=== PATIENT | female | born 1970 | race Caucasian/White ===

== ENCOUNTER 2018-11-03 17:53 | Emergency (ER) | payer MEDICAID ==
[~2018-11-03] VITALS: Ht 152.4 cm; Wt 40.8 kg
[2018-11-03] MEDS ORDERED: HYDR-3686 PO (20:05)
[2018-11-03] MEDS ORDERED: PERM60CR4 TOP (20:05)
[2018-11-03] MEDS ORDERED: CEPH-572 PO (20:06)
[2018-11-03 20:13] VITALS: BP 116/82
== END 2018-11-03 20:16 | disposition home or self-care (01) ==
LOC: ER 17:54
DX: L30.9 Dermatitis, unspecified (principal); L01.00 Impetigo, unspecified; F17.200 Nicotine dependence, unspecified, uncomplicated; Z60.2 Problems related to living alone; Z79.899 Other long term (current) drug therapy
CPT/HCPCS: 99283

== ENCOUNTER 2019-02-11 08:10 | Emergency (ER) | payer MEDICAID ==
[~2019-02-11] VITALS: Ht 152.4 cm; Wt 41.5 kg
[~2019-02-11 08:10] MED LIST: PERM60CR4 TOP
[2019-02-11] MEDS ORDERED: TRIA15CR61 TOP (08:34)
[2019-02-11] MEDS ORDERED: METH4TAB81 PO (08:34)
[2019-02-11] MEDS ORDERED: triamcinolone acetonide 40mg/ml inj IM ONE (08:35)
[2019-02-11 08:59] VITALS: BP 124/72
== END 2019-02-11 09:01 | disposition home or self-care (01) ==
LOC: ER 08:10
DX: L23.7 Allergic contact dermatitis due to plants, except food (principal); F10.99 Alcohol use, unspecified with unspecified alcohol-induced disorder; Z60.2 Problems related to living alone; Y90.9 Presence of alcohol in blood, level not specified
CPT/HCPCS: 96372; 99283; J3301

== ENCOUNTER 2019-02-18 12:09 | Emergency (ER) | payer MEDICAID ==
[~2019-02-18] VITALS: Ht 154.9 cm; Wt 40.0 kg
[~2019-02-18 12:09] MED LIST changes: +METH4TAB81 PO; +TRIA15CR61 TOP
[2019-02-18] MEDS ORDERED: ketorolac tromethamine 15mg/ml inj. IM ONE (13:05)
[2019-02-18] MEDS ORDERED: IBUP-1986 PO (13:21)
[2019-02-18] MEDS ORDERED: TRAM50TA2 PO (13:21)
[2019-02-18 13:30] VITALS: BP 121/80
== END 2019-02-18 13:35 | disposition home or self-care (01) ==
LOC: ER 12:09
DX: S80.212A Abrasion, left knee, initial encounter (principal); Z60.2 Problems related to living alone; Z79.899 Other long term (current) drug therapy; W18.39XA Other fall on same level, initial encounter; Y93.89 Activity, other specified; Y92.89 Other specified places as the place of occurrence of the external cause; Y99.8 Other external cause status
CPT/HCPCS: 73560; 96372; 99284; J1885

== ENCOUNTER 2019-07-06 08:08 | Emergency (ER) | payer MEDICAID ==
[~2019-07-06] VITALS: Ht 152.4 cm; Wt 41.0 kg
[~2019-07-06 08:08] MED LIST changes: +IBUP-1986 PO; -TRIA15CR61 TOP
[2019-07-06 08:12] VITALS: BP 136/85
[2019-07-06] MEDS ORDERED: triamcinolone acetonide 40mg/ml inj IM ONE (08:20)
[2019-07-06] MEDS ORDERED: TRIA15CR61 TOP (08:21)
== END 2019-07-06 09:25 | disposition home or self-care (01) ==
LOC: ER 08:09
DX: L23.9 Allergic contact dermatitis, unspecified cause (principal); Z79.899 Other long term (current) drug therapy
CPT/HCPCS: 96372; 99283; J3301

== ENCOUNTER 2019-07-19 09:55 | Emergency (ER) | payer MEDICAID ==
[~2019-07-19] VITALS: Ht 152.4 cm; Wt 38.0 kg
[~2019-07-19 09:55] MED LIST changes: +TRIA15CR61 TOP
[2019-07-19 09:56] VITALS: BP 157/86
[2019-07-19] MEDS ORDERED: PRED20TA PO (11:24)
== END 2019-07-19 11:33 | disposition home or self-care (01) ==
LOC: ER 09:56
DX: L23.7 Allergic contact dermatitis due to plants, except food (principal); Z79.899 Other long term (current) drug therapy
CPT/HCPCS: 99283

== ENCOUNTER 2019-07-27 09:24 | Emergency (ER) | payer MEDICAID ==
[~2019-07-27] VITALS: Ht 152.4 cm; Wt 40.7 kg
[~2019-07-27 09:24] MED LIST changes: +PRED20TA PO
[2019-07-27 09:35] VITALS: BP 140/85
[2019-07-27] MEDS ORDERED: PRED10TA PO (11:21)
== END 2019-07-27 11:34 | disposition home or self-care (01) ==
LOC: ER 09:24
DX: L30.8 Other specified dermatitis (principal); Z79.899 Other long term (current) drug therapy
CPT/HCPCS: 99283

== ENCOUNTER → 2021-01-22 | Emergency (ER) | payer MEDICAID ==
[~2021-01-22] VITALS: Ht 152.4 cm; Wt 38.6 kg
[~2021-01-22] MED LIST changes: +PRED10TA PO; -PRED20TA PO; -TRIA15CR61 TOP
[2021-01-22 19:19] VITALS: BP 128/84
== END | disposition left against medical advice (07) ==
LOC: ER 18:43
DX: S61.211A Laceration without foreign body of left index finger without damage to nail, initial encounter (principal); Z53.21 Procedure and treatment not carried out due to patient leaving prior to being seen by health care provider; W45.8XXA Other foreign body or object entering through skin, initial encounter; Y93.9 Activity, unspecified; Y92.89 Other specified places as the place of occurrence of the external cause; Y99.9 Unspecified external cause status

== ENCOUNTER 2021-07-28 17:40 | Emergency (ER) | payer MEDICAID | END 2021-07-28 19:55 | disposition left against medical advice (07) | LOC: ER 17:40 | DX: Z00.8 Encounter for other general examination (principal); Z53.21 Procedure and treatment not carried out due to patient leaving prior to being seen by health care provider ==

== ENCOUNTER 2021-12-06 18:04 | Emergency (ER) | payer MEDICAID ==
[~2021-12-06] VITALS: Ht 152.4 cm; Wt 44.5 kg
[2021-12-06 18:09] VITALS: BP 124/79
[2021-12-06] MEDS ORDERED: dexamethasone sod phosphate 10mg/ml inj IM STA (18:43)
[2021-12-06] MEDS ORDERED: HYDR28CR14 TOP (18:45)
[2021-12-06] MEDS ORDERED: PRED10TA23 PO (18:45)
== END 2021-12-06 18:59 | disposition home or self-care (01) ==
LOC: ER 18:05
DX: L23.7 Allergic contact dermatitis due to plants, except food (principal); Z79.899 Other long term (current) drug therapy
CPT/HCPCS: 96372; 99283; J1100

== ENCOUNTER 2022-05-13 17:56 | Emergency (ER) | payer MEDICAID ==
[~2022-05-13] VITALS: Ht 152.4 cm; Wt 41.8 kg
[~2022-05-13 17:56] MED LIST changes: +HYDR28CR14 TOP
[2022-05-13 17:59] VITALS: BP 153/92
[2022-05-13] MEDS ORDERED: dexamethasone sod phosphate 10mg/ml inj IM STA (18:38)
[2022-05-13] MEDS ORDERED: ketorolac tromethamine 15mg/ml inj. IM ONE (18:40)
== END 2022-05-13 19:02 | disposition home or self-care (01) ==
LOC: ER 17:56
DX: L29.9 Pruritus, unspecified (principal); Z79.2 Long term (current) use of antibiotics; Z60.2 Problems related to living alone; Z79.899 Other long term (current) drug therapy
CPT/HCPCS: 96372; 99284; J1100; J1885